=== PATIENT | female | born 1935 | race Caucasian/White ===

== ENCOUNTER 2021-06-19 15:50 | Inpatient (IN) | payer BC ==
[~2021-06-19] VITALS: Ht 162.6 cm; Wt 44.0 kg
--- NOTE | 2021-06-19 16:10 | NUR ---
TO ER BED 8, BIB FAMILY FROM URGENT CARE,C/O COUGH/SOB X1WEEK, AAOX3, BREATHING EVEN AND NON LABORED, CONNECTED TO MONITOR, AWAITING MD ORDERS
[2021-06-19] MEDS ORDERED: DORZ10DR10 RIGHTEYE (16:19)
[2021-06-19] MEDS ORDERED: NETA2.5D EACHEYE (16:19)
[2021-06-19] MEDS ORDERED: LEVO50TA8 PO (16:19)
[2021-06-19] MEDS ORDERED: ATRO2DRO4 RIGHTEYE (16:19)
--- NOTE | 2021-06-19 16:28 | NUR ---
SALINE LOCK ESTABLISHED RIGHT FOREARM 18GAUGE
--- NOTE | 2021-06-19 16:35 | NUR ---
HIDE COOKING OPERATOR AT BEDSIDE FOR BLOOD DRAW
--- NOTE | 2021-06-19 16:36 | NUR ---
COVID AND INFUENZA SWABS DONE AND SENT TO LAB
--- NOTE | 2021-06-19 16:38 | NUR ---
BLAKE ([facility]) [phone]
[2021-06-19 17:02] LABS: BASOPHILS % (AUTO) 0.1 % (0.0-2.0); CALCIUM, SERUM 8.8 mg/dL (8.5-10.1); CARBON DIOXIDE 36 mmol/L (21-32); CHLORIDE 98 mmol/L (98-107); GLUCOSE 179 mg/dL (74-106); HEMATOCRIT 35 % (33-45); HEMOGLOBIN 11.5 g/dL (11.5-14.8); LYMPHOCYTES # (AUTO) 0.6 K/uL (0.8-4.8); LYMPHOCYTES % (AUTO) 7.5 % (20.0-44.0); MEAN CORPUSCULAR HGB CONC 33 g/dl (31.0-36.0); MEAN CORPUSCULAR VOLUME 89 fL (82-100); MONOCYTES # (AUTO) 1.2 K/uL (0.1-1.30); MONOCYTES % (AUTO) 14.9 % (2.0-12.0); NEUTROPHILS % (AUTO) 77.5 % (43.0-81.0); PLATELET COUNT (AUTO) 176 K/uL (150-450); POTASSIUM 3.5 mmol/L (3.5-5.1); RED BLOOD CELL COUNT(AUTO) 3.93 MIL/uL (4.0-5.2); SODIUM SERUM 136 mmol/L (136-145); UREA NITROGEN, BLOOD 32 mg/dL (7-18); WHITE BLOOD COUNT (AUTO) 7.8 K/uL (4.3-11.0)
[2021-06-19] MEDS ORDERED: LEVOFLOXACIN 750 MG /D5W 150ML PIGGYBACK IV ONE (17:30)
[2021-06-19] MEDS ORDERED: LEVOFLOXACIN 750 MG /D5W 150ML 150 ML IV ONE (17:50)
[2021-06-19] MEDS ORDERED: KETO5DRO39 EACHEYE (18:17)
[2021-06-19] MEDS ORDERED: ONDANSETRON HCL/PF 4 MG/2 ML VIAL IVP PRN (20:30)
[2021-06-19] MEDS ORDERED: MAGNESIUM HYDROXIDE 30 ML UDC PO PRN (20:30)
[2021-06-19] MEDS ORDERED: ACETAMINOPHEN 325 MG TABLET PO PRN (20:30)
[2021-06-19] MEDS ORDERED: Z GUARD REMEDY 4 OZ OINT TP PRN (20:30)
[2021-06-19] MEDS ORDERED: LEVOFLOXACIN 500 MG /D5W 100ML 500 MG in PREMIX 1 EA IV SCH (20:30)
[2021-06-19] MEDS ORDERED: MAG HYDROX/AL HYDROX/SIMETH 30 ML UDC PO PRN (20:30)
--- NOTE | 2021-06-19 20:35 | NUR ---
TELE 116-1
--- NOTE | 2021-06-19 20:57 | NUR ---
REPORT GIVEN TO ALL RAPHAEL
--- NOTE | 2021-06-19 21:22 | NUR ---
PT TRANSFERRED UNDER ACLS
[2021-06-19 21:30] VITALS: BP 126/62
--- NOTE | 2021-06-19 21:30 | NUR ---
RN NOTES RECEIVED PATIENT FROM ER WITH OF PNA, COVID-19, A/OX3, HARD OF HEARING, ST ON TELE MONITOR 112, ON SIMPLE MASK SATURATING 97%, PUT PATIENT ON NASAL CANNULA AT 5L, UNVACCINATED, MAKE PATIENT COMFORTABLE,CALL LIGHT WITHIN REACH, SIDERAILSUPX2, WILL CONTINUE TO MONITOR
[2021-06-19] MEDS: ENOXAPARIN SODIUM 40 MG/0.4 ML DISP.SYRIN SQ SCH (22:28)
[2021-06-20] VITALS (7 sets, daily range): BP systolic 105–125; BP diastolic 44–54
--- NOTE | 2021-06-20 06:21 | NUR ---
RN NOTES AWAKE, NOT IN DISTRESS, MORNING CARE RENDERED, CALL LIGHT WITHIN REACH, SIDERAILSUPX3, PT. NEEDS ATTENDED
[2021-06-20 06:43] LABS: BASOPHILS % (AUTO) 0.1 % (0.0-2.0); HEMATOCRIT 31 % (33-45); HEMOGLOBIN 10.4 g/dL (11.5-14.8); LYMPHOCYTES # (AUTO) 0.4 K/uL (0.8-4.8); LYMPHOCYTES % (AUTO) 5.8 % (20.0-44.0); MEAN CORPUSCULAR HGB CONC 34 g/dl (31.0-36.0); MEAN CORPUSCULAR VOLUME 88 fL (82-100); MONOCYTES % (AUTO) 14.4 % (2.0-12.0); NEUTROPHILS # (AUTO) 5.8 K/uL (1.8-8.9); NEUTROPHILS % (AUTO) 79.7 % (43.0-81.0); PLATELET COUNT (AUTO) 171 K/uL (150-450); WHITE BLOOD COUNT (AUTO) 7.3 K/uL (4.3-11.0)
[2021-06-20 07:20] LABS: CREATININE 0.8 mg/dL (0.6-1.3); MAGNESIUM 2.4 mg/dL (1.8-2.4); PHOSPHORUS 2.6 mg/dL (2.5-4.9); POTASSIUM 3.7 mmol/L (3.5-5.1)
--- NOTE | 2021-06-20 07:24 | NUR ---
FINANCIAL RISK MANAGER OPENING NOTES RECEIVED PT RESTING IN BED, ASLEEP, EASILY AWAKEN BY VERBAL AND TACTILE STIMULI. ON O2 VIA NC @ 5 LPM VIA N/C SATURATING WELL, IN NO ACUTE RESPIRATORY DISTRESS NOTED. NO COMPLAINTS OF PAIN AT THIS TIME. WITH IV ACCESS ON RIGHT FOREARM G#20, INTACT AND PATENT. ON TELE MONITOR WITH CURRENT READING SHOWING ST HR AT 104. SAFETY MEASURES IN PLACE. BED LOCKED AND IN LOWEST POSITION, SIDE RAILS UP X 2, CALL LIGHT PLACED WITHIN EASY REACH. WILL CONTINUE TO MONITOR ACCORDINGLY.
[2021-06-20] MEDS: KETOROLAC EYE 0.5% 3 ML BOTTLE EACHEYE SCH (08:23)
[2021-06-20] MEDS: LEVOTHYROXINE SODIUM 50 MCG TABLET PO SCH (08:23)
[2021-06-20] MEDS: DORZOLAMIDE OPTH 2% 10 ML BOTTLE RIGHTEYE SCH ×2 (08:23→16:15)
[2021-06-20] MEDS: DEXAMETHASONE SOD PHOSPHATE 4 MG/ML VIAL IV SCH (08:23)
[2021-06-20 09:22] LABS: CALCIUM, SERUM 8.6 mg/dL (8.5-10.1)
--- NOTE | 2021-06-20 10:52 | NUR ---
RN NOTES CALLED SON JULIÁN REGARDING PATIENT'S RHOPRESSA PER PHARMACY WE DO NOT CARRY THE MEDICATION AND IF FAMILY ARE ABLE TO PROVIDE ONE, NO ANSWER, LEFT A VOICEMAIL INSTEAD.
--- NOTE | 2021-06-20 14:44 | NUR ---
LAB CALLED IN STATED THAT PROCALCITONIN LEVEL WAS 2.16 DR JARRELL WAS NOTIFIED
--- NOTE | 2021-06-20 18:29 | NUR ---
UNIT DIRECTOR CLOSING NOTES PATIENT RESTING IN BED, AWAKE, ON O2 VIA NC @ 5 LPM VIA N/C SATURATING WELL, IN NO ACUTE RESPIRATORY DISTRESS NOTED. NO COMPLAINTS OF PAIN AT THIS TIME. WITH IV ACCESS ON RIGHT FOREARM G#20, INTACT AND PATENT. ON TELE MONITOR WITH CURRENT READING SHOWING SR-ST HR AT 90- 100'S. SAFETY MEASURES IN PLACE. BED LOCKED AND IN LOWEST POSITION, SIDE RAILS UP X 2, CALL LIGHT PLACED WITHIN EASY REACH. ALL NEEDS ATTENDED AND MET, DUE MEDS GIVEN ORDERED. WILL ENDORSE TO ONCOMING SHIFT FOR JAVI.
--- NOTE | 2021-06-20 19:48 | NUR ---
TELE OPENING NOTE PATIENT RECEIVED AWAKE IN BED. A/OX3. NO S/S OF DISTRESS, BREATHING SYMMETRICAL. 5L NC. RFA #20 SL INTACT AND PATENT. TELE MONITOR REVEALS SR 85. SAFETY MEASURES IN PLACE: BED AT LOWEST POSITION, RAILS UP X2, CALL PINEDO WITHIN REACH. WILL CONTINUE TO MONITOR PATIENT.
[2021-06-20] MEDS: ENOXAPARIN SODIUM 40 MG/0.4 ML DISP.SYRIN SQ SCH (21:40)
[2021-06-21 01:00] VITALS: BP 116/48
[2021-06-21 05:00] VITALS: BP 135/50
--- NOTE | 2021-06-21 06:14 | NUR ---
TELE CLOSING NOTE PATIENT ASLEEP IN BED. A/OX3. NO S/S OF DISTRESS, BREATHING SYMMETRICAL. 5L NC. RFA #20 SL INTACT AND PATENT. TELE MONITOR REVEALS SR 70. SAFETY MEASURES IN PLACE: BED AT LOWEST POSITION, RAILS UP X2, CALL PINEDO WITHIN REACH. WILL CONTINUE TO MONITOR PATIENT. Addendum: 06/21/21 at 0622 by DICKSON LANCASTER RN LAST SENTENCE OF NOTE SHOULD READ: WILL ENDORSE TO FOLLOWING SHIFT FOR JAVI.
--- NOTE | 2021-06-21 07:50 | NUR ---
TELE OPENING NOTES RECEIVED PATIENT AWAKE IN BED. A/OX3. NO S/S OF DISTRESS, NO SOB, BREATHING EXPANSION SYMMETRICAL. 5L NC. RFA #20 SL INTACT AND PATENT. TELE MONITOR REVEALS SR 85. ALL SAFETY MEASURES IN PLACE: BED AT LOWEST POSITION, RAILS UP X2, CALL PINEDO WITHIN REACH. WILL CONTINUE TO MONITOR PATIENT.
[2021-06-21 09:00] VITALS: BP 110/55
[2021-06-21] MEDS: KETOROLAC EYE 0.5% 3 ML BOTTLE EACHEYE SCH (09:00)
[2021-06-21] MEDS: DORZOLAMIDE OPTH 2% 10 ML BOTTLE RIGHTEYE SCH ×2 (10:27→16:44)
[2021-06-21] MEDS: DEXAMETHASONE SOD PHOSPHATE 4 MG/ML VIAL IV SCH (10:27)
[2021-06-21] MEDS: LEVOTHYROXINE SODIUM 50 MCG TABLET PO SCH (10:27)
[2021-06-21 13:00] VITALS: BP 117/54
[2021-06-21] MEDS: LEVOFLOXACIN 750 MG /D5W 150ML 750 MG in PREMIX 1 EA IV SCH (16:45)
--- NOTE | 2021-06-21 16:57 | NUR ---
DEV OPS ENGINEER NOTES PER [facility], REGINALD V, PT IS POSITIVE MRSA NARES. DOCTOR YENY NOTIFIED WITH ORDER BACTROBAN OINT BID.
[2021-06-21 17:00] VITALS: BP 120/58
--- NOTE | 2021-06-21 18:17 | NUR ---
RUBBER GOODS ASSEMBLER CLOSING NOTES PATIENT REMAINED STABLE THROUGHOUT THE SHIFT. VITAL SIGNS ARE RECORDED AFEBRILE. EYE REDNESS PRESENT AND PRESCRIBED EYE DROPS ADMINISTERED. ALL OTHER SCHEDULED MEDS ADMINISTERED ORDERED. BREATHING EXPANSION IS SYMMETRICAL AND UNLABORED. NO S/S OF DISTRESS OR CHEST DISCOMFORT. ALL SAFETY MEASURES IN PLACE. BED IN LOWEST POSITION AND LOCKED. CALL LIGHT WITHIN REACH. WILL ENDORSE TO COMPLIANCE ENGINEER PRODUCTS NURSE.
--- NOTE | 2021-06-21 19:00 | NUR ---
RN NOTE RECEIVED PATIENT IN BED, AO X 2-3 WITH PERIODS OF CONFUSION, IN NO ACUTE DISTRESS AT THIS TIME. BREATHING UNLABORED, SATURATION AT 96% ON 5LPM VIA NC, SR ON THE MONITOR, HR IS 77. NOTED IV SITE AT R FOREARM 20G, PATENT AND FLUSHING WELL, NO S/S OF INFECTION OR INFILTRATION. SAFETY MEASURES IMPLEMENTED. PATIENT BED ALARM IS ON. HEAD OF BED ELEVATED. BED IS LOCKED, IN LOWEST POSITION AND SIDE RAILS UP. CALL LIGHT WITHIN REACH OF THE PATIENT. WILL CONTINUE TO MONITOR AND REASSESS FOR ANY CHANGES.
[2021-06-21 20:00] VITALS: BP 116/60
[2021-06-21] MEDS: MUPIROCIN OINT 2% 22 GM TUBE NS SCH (21:20)
[2021-06-21] MEDS: ZOLPIDEM TARTRATE 5 MG TABLET PO PRN (21:21)
[2021-06-21] MEDS: ENOXAPARIN SODIUM 40 MG/0.4 ML DISP.SYRIN SQ SCH (21:21)
[2021-06-22] VITALS: BP 123/60
[2021-06-22 04:00] VITALS: BP 117/46
[2021-06-22 06:19] LABS: HEMATOCRIT 33 % (33-45); HEMOGLOBIN 10.9 g/dL (11.5-14.8); LYMPHOCYTES # (AUTO) 0.4 K/uL (0.8-4.8); LYMPHOCYTES % (AUTO) 6.2 % (20.0-44.0); MEAN CORPUSCULAR HGB CONC 33 g/dl (31.0-36.0); MEAN CORPUSCULAR VOLUME 89 fL (82-100); MONOCYTES # (AUTO) 0.9 K/uL (0.1-1.30); MONOCYTES % (AUTO) 13.1 % (2.0-12.0); NEUTROPHILS # (AUTO) 5.9 K/uL (1.8-8.9); NEUTROPHILS % (AUTO) 80.7 % (43.0-81.0); PLATELET COUNT (AUTO) 265 K/uL (150-450); RED BLOOD CELL COUNT(AUTO) 3.72 MIL/uL (4.0-5.2); WHITE BLOOD COUNT (AUTO) 7.3 K/uL (4.3-11.0)
[2021-06-22 06:38] LABS: CALCIUM, SERUM 8.5 mg/dL (8.5-10.1); CREATININE 0.9 mg/dL (0.6-1.3); POTASSIUM 3.9 mmol/L (3.5-5.1)
--- NOTE | 2021-06-22 07:16 | NUR ---
TELE OPENING NOTE RECEIVED PT AWAKE IN BED. A/OX3. NO S/S OF DISTRESS, BREATHING SYMMETRICAL. 5L NC. RFA #20 SL INTACT AND PATENT. TELE MONITOR REVEALS SR IN 70'S. SAFETY MEASURES IN PLACE: BED AT LOWEST POSITION, RAILS UP X2, CALL PINEDO WITHIN REACH. WILL CONTINUE TO MONITOR PATIENT.
[2021-06-22 08:00] VITALS: BP 174/90
[2021-06-22] MEDS: LEVOTHYROXINE SODIUM 50 MCG TABLET PO SCH (08:36)
[2021-06-22] MEDS: DEXAMETHASONE SOD PHOSPHATE 4 MG/ML VIAL IV SCH (08:36)
[2021-06-22] MEDS: MUPIROCIN OINT 2% 22 GM TUBE NS SCH ×2 (08:36→21:03)
[2021-06-22] MEDS: KETOROLAC EYE 0.5% 3 ML BOTTLE EACHEYE SCH (08:37)
[2021-06-22] MEDS: DORZOLAMIDE OPTH 2% 10 ML BOTTLE RIGHTEYE SCH ×2 (08:37→17:47)
[2021-06-22 12:00] VITALS: BP 130/60
[2021-06-22] MEDS: DOXYCYCLINE HYCLATE (100 MG) 100 MG TABLET PO SCH ×2 (14:22→21:01)
[2021-06-22 16:00] VITALS: BP 142/84
--- NOTE | 2021-06-22 19:02 | NUR ---
CONTRACTS SPECIALIST CLOSING NOTES PATIENT REMAINED STABLE THROUGHOUT THE SHIFT. PT IS A/O X 2-3. PT ON 5L NC SATING AT 95%. IV ACCESS AT RFA 20G. VITAL SIGNS ARE RECORDED AFEBRILE. EYE REDNESS PRESENT AND PRESCRIBED EYE DROPS ADMINISTERED. ALL OTHER SCHEDULED MEDS ADMINISTERED ORDERED. BREATHING EXPANSION IS SYMMETRICAL AND UNLABORED. NO S/S OF DISTRESS OR CHEST DISCOMFORT. ALL SAFETY MEASURES IN PLACE. BED IN LOWEST POSITION AND LOCKED. CALL LIGHT WITHIN REACH. WILL ENDORSE TO PAYMENT SPECIALIST NURSE FOR JAVI.
--- NOTE | 2021-06-22 19:30 | NUR ---
TELE1 RN NOTES RECEIVED ON BED A/O X2-3,BREATHING NON LABORED,O2 5L/NC IN USED,NOTED HAVING EPISODE OF COUGH,TIGHT IN NATURE,WILL NOTIFY HOSPITALIST METAL SPRAY OPERATOR FOR COUGH MEDICINE.SALINE LOCK RIGHT FOREARM INTACT AND PATENT.DROPLET PRECAUTION DUE TO COVID 19,PENDING PCR RESULT.CALL LIGHT IN REACH,NEEDS ANTICIPATED.
[2021-06-22 20:00] VITALS: BP 142/64
--- NOTE | 2021-06-22 20:10 | NUR ---
TELE1 RN NOTES AMY MADE AWARE ON PATIENT COUGH STATUS,WITH NEW ORDERS NOTED AND CARRIED OUT.
[2021-06-22] MEDS ORDERED: BENZONATATE 100 MG CAPSULE PO PRN (20:30)
[2021-06-22] MEDS ORDERED: ALBUTEROL SULFATE 8 GM HFA.AER.AD IH PRN ×2 (20:30→21:00)
--- NOTE | 2021-06-22 21:00 | NUR ---
TELE1 RN NOTES HAVING DRY COUGH,TESSALON ARIANA 100MG PO GIVEN FOR COUGH
[2021-06-22] MEDS: ENOXAPARIN SODIUM 40 MG/0.4 ML DISP.SYRIN SQ SCH (21:01)
[2021-06-22] MEDS: RHOPRESSA EYE RIGHTEYE SCH (21:04)
[2021-06-22] MEDS: ZOLPIDEM TARTRATE 5 MG TABLET PO PRN (21:45)
[2021-06-23 00:36] VITALS: BP 131/57
--- NOTE | 2021-06-23 01:00 | NUR ---
COOKER MECHANIC NOTES NEW SALINE LOCK PLACED ON LEFT FOREARM #22
[2021-06-23 04:00] VITALS: BP 124/64
--- NOTE | 2021-06-23 05:00 | NUR ---
ADVERTISING OPERATIONS COORDINATOR NOTES AWAKE,MORNING CARE RENDERED.HAD BM,ASSISTED TO THE COMMODE,VOIDED WELL.
--- NOTE | 2021-06-23 06:37 | NUR ---
PASSENGER BOOKING CLERK NOTES ON BED SLEEPING,NO SOB NOTED,STILL ON O2 AT 5L,O2 SAT ABOVE 93%.KEPT ON DROPLET ISOLATION,AWAITING PCR RESULT.IN NO ACUTE DISTRESS
--- NOTE | 2021-06-23 07:20 | NUR ---
ROLLOUT MANAGER OPENING NOTE RECEIVED PT AWAKE IN BED. A/OX3. NO S/S OF DISTRESS, BREATHING SYMMETRICAL. 5L NC. LFA #22 SL INTACT AND PATENT. TELE MONITOR REVEALS SR IN 70'S. SAFETY MEASURES IN PLACE: BED AT LOWEST POSITION, RAILS UP X2, CALL PINEDO WITHIN REACH. WILL CONTINUE TO MONITOR PATIENT.
[2021-06-23 08:00] VITALS: BP 121/70
[2021-06-23] MEDS: DOXYCYCLINE HYCLATE (100 MG) 100 MG TABLET PO SCH ×2 (09:32→21:07)
[2021-06-23] MEDS: LEVOTHYROXINE SODIUM 50 MCG TABLET PO SCH (09:32)
[2021-06-23] MEDS: DEXAMETHASONE SOD PHOSPHATE 4 MG/ML VIAL IV SCH (09:33)
[2021-06-23] MEDS: MUPIROCIN OINT 2% 22 GM TUBE NS SCH ×2 (09:33→21:08)
[2021-06-23] MEDS: KETOROLAC EYE 0.5% 3 ML BOTTLE RIGHTEYE SCH (09:35)
[2021-06-23] MEDS: DORZOLAMIDE OPTH 2% 10 ML BOTTLE RIGHTEYE SCH ×2 (09:36→16:23)
[2021-06-23 12:00] VITALS: BP 111/57
[2021-06-23] MEDS: ENSURE ENLIVE 237 ML LIQUID (VANILLA) PO SCH ×2 (12:02→16:23)
[2021-06-23 16:00] VITALS: BP 110/64
[2021-06-23] MEDS: LEVOFLOXACIN 750 MG /D5W 150ML 750 MG in PREMIX 1 EA IV SCH (16:23)
--- NOTE | 2021-06-23 19:00 | NUR ---
AIR BRAKE OPERATOR CLOSING NOTES PATIENT REMAINED STABLE THROUGHOUT THE SHIFT. PT IS A/O X 2-3. PT ON 5L NC SATING AT 96%. NO IV ACCESS AT THE MOMENT. PT PULLED LINE AT APPROX. 1850. VITAL SIGNS ARE RECORDED AFEBRILE. EYE REDNESS PRESENT AND PRESCRIBED EYE DROPS ADMINISTERED. ALL OTHER SCHEDULED MEDS ADMINISTERED ORDERED. BREATHING EXPANSION IS SYMMETRICAL AND UNLABORED. NO S/S OF DISTRESS OR CHEST DISCOMFORT. ALL SAFETY MEASURES IN PLACE. BED IN LOWEST POSITION AND LOCKED. CALL LIGHT WITHIN REACH. WILL ENDORSE TO TIME MOTION ANALYST NURSE FOR JAVI.
--- NOTE | 2021-06-23 19:30 | NUR ---
RN NOTE PT RECEIVED IN BED. PT IS ON 5L OF O2 VIA NC SHOWING NO S/SX OF RESP DISTRESS. BREATHING EVEN AND UNLABORED. PT IS ALERT AND ORIENTED X2-3. ON GALLERY HOST SHOWING NSR. SACRAL REDNESS NOTED. PT CURRENTY ON SOFT DIET. PER DAY SHIFT, PT PULLED OUT IV LINE, WILL RE-INSERT IV LINE.ALL SAFETY MEASURES IMPLEMENTED. CALL LIGHT WITHIN REACH. BED ALARM ON. BED LOCKED AND IN LOWEST POSITION. SIDE RAILS UP. WILL CONTINUE TO MONITOR AND ASSESS FOR ANY CHANGES DURING SHIFT.
[2021-06-23 20:00] VITALS: BP 131/60
--- NOTE | 2021-06-23 21:01 | NUR ---
RN NOTE DAY SHIFT ENDORSED THAT PT PULLED OUT IV LINE. IV RE-INSERTED IN LEFT AC #20. PATENT, AND INTACT.
[2021-06-23] MEDS: RHOPRESSA EYE RIGHTEYE SCH (21:06)
[2021-06-23] MEDS: ENOXAPARIN SODIUM 40 MG/0.4 ML DISP.SYRIN SQ SCH (21:10)
[2021-06-24] VITALS: BP 112/64
[2021-06-24 04:00] VITALS: BP 115/50
--- NOTE | 2021-06-24 06:54 | NUR ---
RN NOTE NO CHANGES IN PT CONDITION DURING SHIFT. PT IS ON 5L OF O2 VIA NC SHOWING NO S/SX OF RESP DISTRESS. BREATHING EVEN AND UNLABORED. PT IS ALERT AND ORIENTED X2-3. ON TELEMARKETING AGENT SHOWING NSR. SACRAL REDNESS NOTED. PT CURRENTLY ON SOFT DIET. PER DAY SHIFT, PT PULLED OUT IV LINE, WILL RE-INSERT IV LINE.ALL SAFETY MEASURES IMPLEMENTED. ALL DUE MEDS GIVEN ORDERED. PT KEPT CLEAN AND COMFORTABLE. HOB ELEVATED. BED LOCKED AND IN LOWEST POSITION. SIDE RAILS UP. CALL LIGHT WITHIN REACH. WILL ENDORSE TO MORNING SHIFT RN FOR JAVI.
[2021-06-24 08:00] VITALS: BP 131/49
[2021-06-24] MEDS: LEVOTHYROXINE SODIUM 50 MCG TABLET PO SCH (08:38)
[2021-06-24] MEDS: ENSURE ENLIVE 237 ML LIQUID (VANILLA) PO SCH ×3 (08:38→16:55)
[2021-06-24] MEDS: DOXYCYCLINE HYCLATE (100 MG) 100 MG TABLET PO SCH ×2 (08:38→21:12)
[2021-06-24] MEDS: DEXAMETHASONE SOD PHOSPHATE 10 MG/ML VIAL IV SCH (08:38)
[2021-06-24] MEDS: DORZOLAMIDE OPTH 2% 10 ML BOTTLE RIGHTEYE SCH ×2 (08:40→16:55)
[2021-06-24] MEDS: MUPIROCIN OINT 2% 22 GM TUBE NS SCH ×2 (08:42→21:12)
[2021-06-24] MEDS: KETOROLAC EYE 0.5% 3 ML BOTTLE RIGHTEYE SCH (08:42)
[2021-06-24 08:58] LABS: BASOPHILS % (AUTO) 0.1 % (0.0-2.0); EOSINOPHILS % (AUTO) 0.1 % (0.0-6.0); HEMATOCRIT 36 % (33-45); HEMOGLOBIN 11.7 g/dL (11.5-14.8); LYMPHOCYTES # (AUTO) 0.8 K/uL (0.8-4.8); LYMPHOCYTES % (AUTO) 8.9 % (20.0-44.0); MEAN CORPUSCULAR HGB CONC 33 g/dl (31.0-36.0); MEAN CORPUSCULAR VOLUME 89 fL (82-100); MONOCYTES # (AUTO) 0.7 K/uL (0.1-1.30); MONOCYTES % (AUTO) 8.1 % (2.0-12.0); NEUTROPHILS # (AUTO) 7.5 K/uL (1.8-8.9); NEUTROPHILS % (AUTO) 82.8 % (43.0-81.0); PLATELET COUNT (AUTO) 341 K/uL (150-450); RED BLOOD CELL COUNT(AUTO) 4.01 MIL/uL (4.0-5.2)
[2021-06-24 09:42] LABS: CALCIUM, SERUM 8.9 mg/dL (8.5-10.1); CREATININE 0.8 mg/dL (0.6-1.3); MAGNESIUM 2.6 mg/dL (1.8-2.4); POTASSIUM 3.7 mmol/L (3.5-5.1)
[2021-06-24 10:49] LABS: PHOSPHORUS 3.2 mg/dL (2.5-4.9)
[2021-06-24 12:00] VITALS: BP 130/57
[2021-06-24 13:30] LABS: BAND % (MANUAL) 3 % (0.0-5.0); LYMPHOCYTES % (MANUAL) 11 % (16-48); MONOCYTES % (MANUAL) 6 % (0-11.0); NEUTROPHILS % (MANUAL) 80 (42-76)
[2021-06-24 16:00] VITALS: BP 129/54
--- NOTE | 2021-06-24 18:39 | NUR ---
RN CLOSING NOTE PT AWAKE AND RESTING AND BED. A/OX3. NO S/S OF DISTRESS, BREATHING SYMMETRICAL. 5L NC. LFA #22 SL INTACT AND PATENT. TELE MONITOR SHOWING SR IN 70'S. SAFETY MEASURES IN PLACE: BED AT LOWEST POSITION AND WHEELS LOCKED IN PLACE, RAILS UP X2, CALL PINEDO WITHIN REACH. WILL ENDORSE TO MANAGER HEAVY DUTY RN.
--- NOTE | 2021-06-24 19:35 | NUR ---
RN NOTE PT RECEIVED IN BED. PT IS ON 5L OF O2 VIA NC SHOWING NO S/SX OF RESP DISTRESS. BREATHING EVEN AND UNLABORED. PT IS ALERT AND ORIENTED X3. ON STITCHDOWN THREAD LASTER SHOWING NSR. PT CURRENTLY ON SOFT DIET. IV ACCESS NOTED ON RIGHT FA #22. LINE FLUSHED, PATENT, AND INTACT WITH NO SIGNS OF INFILTRATION. ALL SAFETY MEASURES IMPLEMENTED. CALL LIGHT WITHIN REACH. BED ALARM ON. BED LOCKED AND IN LOWEST POSITION. SIDE RAILS UP. WILL CONTINUE TO MONITOR AND ASSESS FOR ANY CHANGES DURING SHIFT.
[2021-06-24 20:00] VITALS: BP 133/55
[2021-06-24] MEDS: RHOPRESSA EYE RIGHTEYE SCH (21:12)
[2021-06-24] MEDS: ENOXAPARIN SODIUM 40 MG/0.4 ML DISP.SYRIN SQ SCH (21:12)
[2021-06-25] VITALS: BP 150/52
[2021-06-25 04:00] VITALS: BP 147/60
--- NOTE | 2021-06-25 06:28 | NUR ---
RN NOTE NO CHANGES IN PT CONDITION DURING SHIFT. PT IS NOW ON 4L OF O2 VIA NC SHOWING NO S/SX OF RESP DISTRESS. BREATHING EVEN AND UNLABORED. PT IS ALERT AND ORIENTED X3. ON CRIMINAL JUSTICE INSTRUCTOR SHOWING NSR. IV ACCESS NOTED ON RIGHT FA #22. LINE FLUSHED, PATENT, AND INTACT WITH NO SIGNS OF INFILTRATION. ALL SAFETY MEASURES IMPLEMENTED. CALL LIGHT WITHIN REACH. BED ALARM ON. BED LOCKED AND IN LOWEST POSITION. SIDE RAILS UP. WILL ENDORSE TO MORNING SHIFT RN FOR JAVI.
[2021-06-25 06:35] LABS: EOSINOPHILS % (AUTO) 0.3 % (0.0-6.0); HEMATOCRIT 33 % (33-45); HEMOGLOBIN 10.6 g/dL (11.5-14.8); LYMPHOCYTES # (AUTO) 0.9 K/uL (0.8-4.8); LYMPHOCYTES % (AUTO) 10.1 % (20.0-44.0); MEAN CORPUSCULAR HGB CONC 33 g/dl (31.0-36.0); MEAN CORPUSCULAR VOLUME 89 fL (82-100); MONOCYTES # (AUTO) 0.6 K/uL (0.1-1.30); MONOCYTES % (AUTO) 7.3 % (2.0-12.0); NEUTROPHILS # (AUTO) 7.1 K/uL (1.8-8.9); NEUTROPHILS % (AUTO) 82.3 % (43.0-81.0); PLATELET COUNT (AUTO) 330 K/uL (150-450); RED BLOOD CELL COUNT(AUTO) 3.67 MIL/uL (4.0-5.2); WHITE BLOOD COUNT (AUTO) 8.6 K/uL (4.3-11.0)
--- NOTE | 2021-06-25 07:17 | NUR ---
NET MENDER NOTE PT IN BED , ALERT ORIENTED WITH SOME CONFUSIONS, ON 4L OF O2 VIA NC SHOWING NO SOB NOTED AT THIS TIME BREATHING EVEN AND UNLABORED. . ON SORTER LUMBER STRAIGHTENER SHOWING NSR. IV ACCESS NOTED ON RIGHT FA #22. LINE FLUSHED, PATENT, AND INTACT WITH NO SIGNS OF INFILTRATION. ALL SAFETY MEASURES IMPLEMENTED. CALL LIGHT WITHIN REACH. BED ALARM ON. BED LOCKED AND IN LOWEST POSITION. SIDE RAILS UP. WILL MONITOR
[2021-06-25 08:00] VITALS: BP 143/55
[2021-06-25] MEDS: DEXAMETHASONE SOD PHOSPHATE 10 MG/ML VIAL IV SCH (08:02)
[2021-06-25] MEDS: DOXYCYCLINE HYCLATE (100 MG) 100 MG TABLET PO SCH ×2 (08:03→21:20)
[2021-06-25] MEDS: LEVOTHYROXINE SODIUM 50 MCG TABLET PO SCH (08:03)
[2021-06-25] MEDS: MUPIROCIN OINT 2% 22 GM TUBE NS SCH ×2 (08:04→21:20)
[2021-06-25] MEDS: DORZOLAMIDE OPTH 2% 10 ML BOTTLE RIGHTEYE SCH ×2 (08:05→17:00)
[2021-06-25] MEDS: ENSURE ENLIVE 237 ML LIQUID (VANILLA) PO SCH ×3 (08:11→17:47)
--- NOTE | 2021-06-25 09:00 | NUR ---
teletypesetter monitor note seen by dr james updated patient condition, aware that saturation 90% on4l nc
[2021-06-25] MEDS: KETOROLAC EYE 0.5% 3 ML BOTTLE RIGHTEYE SCH (09:26)
--- NOTE | 2021-06-25 10:36 | NUR ---
radiotelegraphist note pt done able to make few steps with max assistance, will f\u
[2021-06-25 11:27] LABS: CALCIUM, SERUM 8.7 mg/dL (8.5-10.1); CREATININE 0.8 mg/dL (0.6-1.3); POTASSIUM 4.3 mmol/L (3.5-5.1)
[2021-06-25 12:00] VITALS: BP 125/60
--- NOTE | 2021-06-25 14:37 | NUR ---
telegraphic typewriter mechanic note rounds made all needs attended , made bm keep clean dry call light within reach, patient able to speak with son
[2021-06-25 15:31] LABS: BAND % (MANUAL) 3 % (0.0-5.0); LYMPHOCYTES % (MANUAL) 14 % (16-48); METAMYELOCYTES % 6 % (0-0); MONOCYTES % (MANUAL) 4 % (0-11.0); MYELOCYTES % 3 % (0-0); NEUTROPHILS % (MANUAL) 70 (42-76)
[2021-06-25 16:00] VITALS: BP 135/56
[2021-06-25] MEDS ORDERED: LEVOFLOXACIN (250MG) 250 MG TABLET PO SCH (17:00)
--- NOTE | 2021-06-25 18:33 | NUR ---
teletype operator note fed by child development specialist ,not in distresses, on4l nc, 97% saturation, keep clean dry , all needs attended
--- NOTE | 2021-06-25 19:30 | NUR ---
RN NOTE PT RECEIVED IN BED. PT IS ON 4L OF O2 VIA NC SHOWING NO S/SX OF RESP DISTRESS. BREATHING EVEN AND UNLABORED. PT IS ALERT AND ORIENTED X3 WITH PERIODS OF CONFUSION. ON RESIN FILTERER SHOWING NSR. PT CURRENTLY ON SOFT DIET. IV ACCESS NOTED ON RIGHT FA #22. LINE FLUSHED, PATENT, AND INTACT WITH NO SIGNS OF INFILTRATION. BILATERAL SOFT WRIST RESTRAINTS NOTED. ALL SAFETY MEASURES IMPLEMENTED. CALL LIGHT WITHIN REACH. BED ALARM ON. BED LOCKED AND IN LOWEST POSITION. SIDE RAILS UP. HOB ELEVATED. WILL CONTINUE TO MONITOR AND ASSESS FOR ANY CHANGES DURING SHIFT.
[2021-06-25 20:00] VITALS: BP 134/45
[2021-06-25] MEDS: RHOPRESSA EYE RIGHTEYE SCH (21:20)
[2021-06-25] MEDS: ENOXAPARIN SODIUM 40 MG/0.4 ML DISP.SYRIN SQ SCH (21:21)
[2021-06-26] VITALS: BP 140/63
[2021-06-26 04:00] VITALS: BP 149/58
--- NOTE | 2021-06-26 06:44 | NUR ---
RN NOTE NO CHANGES IN PT CONDITION DURING SHIFT. PT NOW ON 4L OF O2 VIA NC SHOWING NO S/SX OF RESP DISTRESS. BREATHING EVEN AND UNLABORED. PT IS ALERT AND ORIENTED X3. IV ACCESS NOTED ON RIGHT FA #22. LINE FLUSHED, PATENT, AND INTACT WITH NO SIGNS OF INFILTRATION. ALL DUE MEDS GIVEN ORDERED. PT KEPT CLEAN AND COMFORTABLE. ALL SAFETY MEASURES IMPLEMENTED. CALL LIGHT WITHIN REACH. BED ALARM ON. BED LOCKED AND IN LOWEST POSITION. SIDE RAILS UP. WILL ENDORSE TO MORNING SHIFT RN FOR JAVI.
--- NOTE | 2021-06-26 07:23 | NUR ---
ENGINEER OF SYSTEM DEVELOPMENT OPENING NOTES PT RECEIVED IN BED A/O X3 WITH PERIODS OF CONFUSION. PT IS ON 4L OF O2 VIA NC SHOWING NO S/SX OF RESP DISTRESS. BREATHING EVEN AND UNLABORED. ON MOTOR COACH DRIVER SHOWING NSR. PT CURRENTLY ON SOFT DIET. IV ACCESS NOTED ON RIGHT FA #22. LINE FLUSHED, PATENT, AND INTACT WITH NO SIGNS OF INFILTRATION. BILATERAL SOFT WRIST RESTRAINTS NOTED. ALL SAFETY MEASURES IMPLEMENTED. CALL LIGHT WITHIN REACH. BED ALARM ON. BED LOCKED AND IN LOWEST POSITION. SIDE RAILS UP. HOB ELEVATED. WILL CONTINUE TO MONITOR.
[2021-06-26 08:00] VITALS: BP 108/38
[2021-06-26] MEDS: ENSURE ENLIVE 237 ML LIQUID (VANILLA) PO SCH ×2 (08:27→11:11)
[2021-06-26] MEDS: LEVOTHYROXINE SODIUM 50 MCG TABLET PO SCH (08:30)
[2021-06-26] MEDS: MUPIROCIN OINT 2% 22 GM TUBE NS SCH (08:30)
[2021-06-26] MEDS: DORZOLAMIDE OPTH 2% 10 ML BOTTLE RIGHTEYE SCH (08:31)
[2021-06-26] MEDS: KETOROLAC EYE 0.5% 3 ML BOTTLE RIGHTEYE SCH (08:31)
[2021-06-26] MEDS: DEXAMETHASONE SOD PHOSPHATE 10 MG/ML VIAL IV SCH (08:31)
[2021-06-26] MEDS: DOXYCYCLINE HYCLATE (100 MG) 100 MG TABLET PO SCH (08:31)
[2021-06-26] MEDS ORDERED: GUAIFENESIN/D-METHORPHAN HB 5 ML UDC PO PRN (09:00)
[2021-06-26] MEDS ORDERED: LEVO250T59 PO (09:52)
[2021-06-26] MEDS ORDERED: DOXY100T2 PO (09:52)
[2021-06-26 12:00] VITALS: BP 129/57
--- NOTE | 2021-06-26 12:39 | NUR ---
RN NOTES PATIENT NEXT OF KIN (JULIÁN) UNABLE TO REACH VIA CALL FOR TRANSFER TO [facility] UPDATE..
--- NOTE | 2021-06-26 13:10 | NUR ---
RN NOTES CALLED [facility] TO GIVE REPORT. SPOKE TO ALL JOHNS FOR CONTINUITY OF CARE.
== END 2021-06-26 16:00 | disposition home health service (06) | DRG 193 ==
LOC: ER 16:02 → TELE1 20:46
PROVIDERS: ADMIT Nurse Practitioner Acute Care; ATTEND Internal Medicine
DX: J18.9 Pneumonia, unspecified organism (principal); J96.01 Acute respiratory failure with hypoxia; N17.0 Acute kidney failure with tubular necrosis; E11.9 Type 2 diabetes mellitus without complications; E86.0 Dehydration; E03.9 Hypothyroidism, unspecified; Z87.01 Personal history of pneumonia (recurrent); Z79.890 Hormone replacement therapy; D64.9 Anemia, unspecified
CPT/HCPCS: 36415; 71045-TC; 71250-TC; 80048-TC; 83605-TC; 83735-TC; 83880; 84100-TC; 84484-TC; 85025-TC; 85378-TC; 86140-TC; 87081-TC; 92526; 92611-TC; 97116-TC; 97530-TC; A4216; C9803; G0378; J1100; J1650; J1956; J7030; U0003

== ENCOUNTER 2023-06-18 11:42 | Emergency (ER) | payer BC ==
[~2023-06-18] VITALS: Ht 152.4 cm; Wt 50.3 kg
[~2023-06-18 11:42] MED LIST: DORZ10DR10 RIGHTEYE; DOXY100T2 PO; KETO5DRO39 EACHEYE; LEVO250T59 PO; LEVO50TA8 PO; NETA2.5D EACHEYE
[2023-06-18] MEDS ORDERED: ACETAMINOPHEN ES 500 MG TABLET ONE (12:13)
[2023-06-18] MEDS: ACETAMINOPHEN ES 500 MG TABLET PO ONE (12:17)
[2023-06-18 12:31] LABS: BASOPHILS % (AUTO) 0.5 % (0.0-2.0); EOSINOPHILS # (AUTO) 0.1 K/uL (0.0-0.7); EOSINOPHILS % (AUTO) 1.2 % (0.0-6.0); HEMATOCRIT 39 % (33-45); HEMOGLOBIN 13.1 g/dL (11.5-14.8); LYMPHOCYTES # (AUTO) 0.8 K/uL (0.8-4.8); LYMPHOCYTES % (AUTO) 18.2 % (20.0-44.0); MEAN CORPUSCULAR HEMOGLOBIN 30 PG (26.0-33.0); MEAN CORPUSCULAR HGB CONC 33 g/dl (31.0-36.0); MEAN CORPUSCULAR VOLUME 91 fL (82-100); MONOCYTES # (AUTO) 0.3 K/uL (0.1-1.30); MONOCYTES % (AUTO) 7.5 % (2.0-12.0); NEUTROPHILS # (AUTO) 3.4 K/uL (1.8-8.9); NEUTROPHILS % (AUTO) 72.6 % (43.0-81.0); PLATELET COUNT (AUTO) 191 K/uL (150-450); RED BLOOD CELL COUNT(AUTO) 4.31 MIL/uL (4.0-5.2); WHITE BLOOD COUNT (AUTO) 4.6 K/uL (4.3-11.0)
[2023-06-18 12:37] LABS: CALCIUM, SERUM 9.1 mg/dL (8.5-10.1)
[2023-06-18 14:50] LABS: APPEARANCE,URINE CLEAR (CLEAR); BILIRUBIN,URINE 1+ (NEGATIVE); BLOOD, URINE NEGATIVE Ery/uL (NEGATIVE); COLOR,URINE YELLOW (YELLOW); KETONES,URINE TRACE mg/dL (NEGATIVE); LEUKOCYTE ESTERASE ,URINE NEGATIVE (NEGATIVE); NITRITE, URINE NEGATIVE (NEGATIVE); PH,URINE 6.5 (5.0-8.0); PROTEIN,URINE NEGATIVE (NEGATIVE); UGLUCOSE NEGATIVE (NEGATIVE); UROBILINOGEN,URINE 0.2 EU/dL (0.2)
[2023-06-18 17:40] VITALS: BP 124/60; TEMP 98.1; O2SAT 98
== END 2023-06-18 17:41 | disposition home or self-care (01) ==
LOC: ER 11:45
DX: M54.50 Low back pain, unspecified (principal); E11.9 Type 2 diabetes mellitus without complications; E03.9 Hypothyroidism, unspecified
CPT/HCPCS: 36415; 72131-TC; 80048-TC; 85025-TC